=== PATIENT | male | born 1965 ===

== ENCOUNTER 2017-02-19 13:59 | Emergency (ER) | payer MEDICAID ==
[2017-02-19 14:13] VITALS: BP 126/71; PULSE 85; RESP 18; TEMP 98; O2SAT 97
--- NOTE | 2017-02-19 14:27 | ED PDOC ---
HPI: Hypertension/Hypotension Time Seen by Provider: 02/19/17 14:18 Chief Complaint (Nursing): High Blood Pressure Chief Complaint (Provider): headache History Per: Patient History/Exam Limitations: no limitations Onset/Duration Of Symptoms: Hrs (1) Current Symptoms Are (Timing): Still Present Associated Symptoms: Headache. denies: Chest Pain, Dyspnea, Dizziness, Blurred Vision, Focal Weakness Additional Complaint(s): Feels like his ears are hot and red, reports that this happened before and his BP was high. Also reports that work has been somewhat stressful. Compliant with meds lisinopril/hcta Past Medical History Reviewed: Historical Data, Nursing Documentation, Vital Signs Vital Signs: Last Vital Signs Temp 98 F 02/19/17 14:06 Pulse 85 02/19/17 14:06 Resp 18 02/19/17 14:06 BP 126/71 02/19/17 14:06 Pulse Ox 97 02/19/17 14:06 - Medical History PMH: HTN - Family History Family History: States: Hypertension - Social History Current smoker - smoking cessation education provided: No - Allergies Allergies/Adverse Reactions: Allergies Allergy/AdvReac Type Severity Reaction Status Date / Time No Known Allergies Allergy Verified 02/19/17 14:14 Review of Systems ROS Statement: Except As Marked, All Systems Reviewed And Found Negative (and as per HPI) Physical Exam - Reviewed Nursing Documentation Reviewed: Yes Vital Signs Reviewed: Yes - Physical Exam Appears: Positive for: Well, No Acute Distress Head Exam: Positive for: ATRAUMATIC, NORMOCEPHALIC Skin: Positive for: Warm, Dry Eye Exam: Positive for: EOMI, PERRL ENT: Positive for: Pharynx Is (clear) Neck: Positive for: Painless ROM, Supple Cardiovascular/Chest: Positive for: Regular Rate, Rhythm, Chest Non Tender. Negative for: Murmur Respiratory: Positive for: Normal Breath Sounds. Negative for: Respiratory Distress Gastrointestinal/Abdominal: Positive for: Soft. Negative for: Tenderness Back: Positive for: Normal Inspection. Negative for: Decreased ROM Extremity: Positive for: Normal ROM. Negative for: Deformity Lymphatic: Negative for: Adenopathy Neurologic/Psych: Positive for: Alert, kit planner II-XII (intact), Oriented (x3), Gait (steady). Negative for: Motor/Sensory Deficits, Aphasia, Facial Droop - ECG O2 Sat by Pulse Oximetry: 97 Disposition - Clinical Impression Clinical Impression: Headache Counseled Patient/Family Regarding: Diagnosis, Need For Followup - Disposition Disposition: Routine/Home Disposition Time: 14:30 Condition: GOOD Additional Instructions: VISITA JORDAN DOCTOR POR LA MANANA A CHEQAR DE NUEVO CONTINUE JORDAN MEDICAMENTO PARA PRESION A RECETO Instructions: Acute Headache (ED) Forms: [facility] ED School/Work Excuse Print Language: OMANI
== END 2017-02-19 14:54 | disposition home or self-care (01) ==
LOC: H.ER 13:59
DX: R51 Headache (principal)